=== PATIENT | male | born 1950 | race Caucasian/White ===

== ENCOUNTER 2021-03-24 05:59 | Inpatient (IN) | payer MEDICARE, OTHER ==
[~2021-03-24] VITALS: Ht 177.8 cm; Wt 71.6 kg
[~2021-03-24 05:59] MED LIST: Atenolol-Chlor1 EACH PO; Carbidopa-Levo1 EAC1 PO; GABA400 PO; PANT40 PO; PROM25S; Ranitidine HCl300 MG PO
[2021-03-24] MEDS ORDERED: Prednisone10 MG (06:25)
[2021-03-24] MEDS ORDERED: MONDOXYNE NL100 MG PO (06:25)
[2021-03-24 06:45] LABS: BASOPHILS ABSOLUTE AUTO 0.04 K/mm3 (0.00-0.23); BASOPHILS PERCENT AUTO 0 % (0-2); EOSINOPHILS ABSOLUTE AUTO 0.01 K/mm3 (0.00-0.68); EOSINOPHILS PERCENT AUTO 0 % (0-6); Hematocrit 38.6 % (37.0-53.0); Hemoglobin 14.4 g/dL (13.5-17.5); IMMATURE GRAN ABSOLUTE AUTO 0.13 K/mm3 (0.00-0.10); IMMATURE GRAN PERCENT AUTO 1 % (0-1); LYMPHOCYTES ABSOLUTE AUTO 3.45 K/mm3 (0.84-5.20); LYMPHOCYTES PERCENT AUTO 21 % (21-46); MONOCYTES ABSOLUTE AUTO 1.17 K/mm3 (0.16-1.47); MONOCYTES PERCENT AUTO 7 % (4-13); Mean Corpuscular HGB Conc 37.3 g/dL (31.5-36.5); Mean Corpuscular Volume 102 fL (80-100); Mean Platelet Volume 9.4 fL (9.1-12.4); NEUTROPHILS ABSOLUTE AUTO 11.49 K/mm3 (1.96-9.15); NEUTROPHILS PERCENT AUTO 71 % (41-73); NRBC ABSOLUTE 0.03 K/mm3 (0.00-0.02); NRBC Auto 0.2 /100 WBC (0.0-0.2); Platelet Count 201 K/mm3 (150-400); RDW Coefficient Variation 12.1 % (11.7-14.2); RDW Standard Deviation 45.5 fL (35.1-46.3); Red Blood Cell Count 3.79 M/mm3 (4.30-5.90); White Blood Cell Count 16.29 K/mm3 (4.00-11.30)
[2021-03-24 06:58] LABS: Alanine Aminotransfer (ALT/SGP 47 U/L (12-78); Albumin, Blood 3.4 g/dL (3.4-5.0); Albumin/Globulin Ratio 1.1 (0.8-1.8); Alk Phos 122 U/L (50-136); Anion Gap 8 mmol/L (6-16); Aspartate Aminotrans (AST/SGOT 69 U/L (12-37); Bilirubin, Total 1.4 mg/dL (0.1-1.0); Blood Urea Nitrogen 22 mg/dL (8-24); Bun/Creatinine Ratio 14.6 (12.0-20.0); CO2, Blood 30 mmol/L (21-32); Calcium, Blood 8.9 mg/dL (8.5-10.1); Chloride, Blood 90 mmol/L (98-108); Creatinine, Blood 1.51 mg/dL (0.60-1.20); Globulin, Blood 3.1 g/dL (2.2-4.0); Glomerular Filtration Rate 46 (60-); Glucose, Blood 101 mg/dL (70-99); Potassium, Blood 2.9 mmol/L (3.5-5.5); Sodium, Blood 128 mmol/L (136-145); Total Protein, Blood 6.5 g/dL (6.4-8.2); Troponin I <0.015 ng/mL (0.000-0.040)
[2021-03-24] MEDS ORDERED: POTASSIUM CL ER 10 M (07:03)
[2021-03-24] MEDS ORDERED: HYDHCL25 PO (07:04)
[2021-03-24] MEDS ORDERED: TADA10TA (07:04)
[2021-03-24] MEDS ORDERED: MIRT15ST PO (07:04)
[2021-03-24 09:20] LABS: Triglycerides 84 mg/dL (30-160)
[2021-03-24 10:26] LABS: SARS-Cov-2 (COVID-19) PCR, MMC NEGATIVE (NEGATIVE)
[2021-03-24] MEDS ORDERED: KLOR-CON 1010 ME1 PO (11:36)
[2021-03-24] MEDS ORDERED: Mirtazapine45 M1 PO (11:36)
[2021-03-24] MEDS ORDERED: DOXE25 PO (11:37)
[2021-03-24] MEDS ORDERED: TADALAFIL5 M1 PO (11:37)
[2021-03-24] MEDS ORDERED: TENORETIC 1001 EACH PO (11:38)
[2021-03-24] MEDS ORDERED: PANT40 PO (12:44)
--- NOTE | 2021-03-24 15:25 | NUR ---
RECIEVED REPORT FROM JENNY PAIGE RN, AT 1200. PATIENT ARRIVED TO ROOM 335 @ 1212. PATIENT WAS ABLE TO TRANSFER FROM W/C TO HOSPITAL BED INDEPENDENTLY. VITALS STABLE. ADMISSION H&P AND MED REC COMPLETE WITH THE ASSISTANCE OF THE PATIENT. ALERT AND ORIENTED. PLEASANT AND COOPERATIVE AND NOW RESTING IN BED. CALL LIGHT WITHIN REACH.
--- NOTE | 2021-03-24 15:50 | NUR ---
PATIENT CONTINUES TO REST IN BED. C/O PAIN A COUPLE HOURS AFTER ADMISSION TO MID-EPIGASTRIC AREA; RESPONDED WELL TO PAIN MEDICATION. PATIENT WILL CALL WHEN HE NEEDS STAFF ASSIST.
--- NOTE | 2021-03-25 03:14 | NUR ---
SHIFT SUMMARY PT PRESENTS ON BEDREST. A&O X4. IV ACCESS IN RIGHT AC, IV FLUIDS INFUSING AT 200MLS PER HOUR. RECEIVED SECOND BAG OF POTASSIUM IV. PT C/O MODERATE ABD TENDERNESS AND EPIGASTRIC PAIN. AND REQUESTS PAIN MEDICATION Q 4 HRS, PER ORDERS. DENIES NAUSEA/VOMITING. VOIDS VIA URINAL. NO TELE. ROOM AIR, MAINTAINING SATS OF >90%. VSS. HE IS ABLE TO SLEEP SOME THIS SHIFT. CALL LIGHT IN PLACE, BED IN LOWEST POSITION.
[2021-03-25 05:11] LABS: BASOPHILS ABSOLUTE AUTO 0.02 K/mm3 (0.00-0.23); BASOPHILS PERCENT AUTO 0 % (0-2); EOSINOPHILS ABSOLUTE AUTO 0.01 K/mm3 (0.00-0.68); EOSINOPHILS PERCENT AUTO 0 % (0-6); Hematocrit 39.4 % (37.0-53.0); Hemoglobin 14.4 g/dL (13.5-17.5); IMMATURE GRAN ABSOLUTE AUTO 0.09 K/mm3 (0.00-0.10); IMMATURE GRAN PERCENT AUTO 1 % (0-1); LYMPHOCYTES ABSOLUTE AUTO 1.35 K/mm3 (0.84-5.20); LYMPHOCYTES PERCENT AUTO 10 % (21-46); MONOCYTES ABSOLUTE AUTO 0.89 K/mm3 (0.16-1.47); MONOCYTES PERCENT AUTO 7 % (4-13); Mean Corpuscular HGB 37.5 pg (26.0-34.0); Mean Corpuscular HGB Conc 36.5 g/dL (31.5-36.5); Mean Corpuscular Volume 103 fL (80-100); Mean Platelet Volume 9.7 fL (9.1-12.4); NEUTROPHILS ABSOLUTE AUTO 11.43 K/mm3 (1.96-9.15); NEUTROPHILS PERCENT AUTO 83 % (41-73); Platelet Count 132 K/mm3 (150-400); RDW Coefficient Variation 12.5 % (11.7-14.2); RDW Standard Deviation 46.4 fL (35.1-46.3); Red Blood Cell Count 3.84 M/mm3 (4.30-5.90); White Blood Cell Count 13.79 K/mm3 (4.00-11.30)
[2021-03-25 05:36] LABS: Albumin, Blood 2.8 g/dL (3.4-5.0); Albumin/Globulin Ratio 1.1 (0.8-1.8); Bilirubin, Total 2.4 mg/dL (0.1-1.0); Bun/Creatinine Ratio 16.7 (12.0-20.0); Calcium, Blood 8.3 mg/dL (8.5-10.1); Creatinine, Blood 1.26 mg/dL (0.60-1.20); Globulin, Blood 2.6 g/dL (2.2-4.0); Total Protein, Blood 5.4 g/dL (6.4-8.2)
--- NOTE | 2021-03-25 18:28 | NUR ---
SHIFT SUMMARY THE PATIENT IS ALERT AND ORIENTED. THE PATIENT WAS STARTED ON A CLEAR LIQUID DIET THIS SHIFT. THEY HAVE BEEN TOLERATING IT WELL. THEY HAVE NOT REEIVED PAIN MEDS SINCE BEFORE THE NEW DIET WAS STARTED. THE PATIENT IS PLEASANT AND COOPERATIVE WITH CARE. THEY MAY POSSIBLY DISCHARGE IN THE AM.
--- NOTE | 2021-03-26 05:07 | NUR ---
NO ACUTE CHANGES OVERNIGHT. PAIN WAS MANAGED WITHOUT ANY PAIN MEDICATION. PATIENT DENIES ANY NAUSEA. DENIES PAIN. TOLERATING DIET WELL. NO SIGNIFICANT EVENTS OVERNIGHT.
[2021-03-26 05:09] LABS: BASOPHILS ABSOLUTE AUTO 0.04 K/mm3 (0.00-0.23); BASOPHILS PERCENT AUTO 0 % (0-2); EOSINOPHILS ABSOLUTE AUTO 0.04 K/mm3 (0.00-0.68); EOSINOPHILS PERCENT AUTO 0 % (0-6); Hematocrit 34.9 % (37.0-53.0); Hemoglobin 12.8 g/dL (13.5-17.5); IMMATURE GRAN ABSOLUTE AUTO 0.08 K/mm3 (0.00-0.10); IMMATURE GRAN PERCENT AUTO 1 % (0-1); LYMPHOCYTES ABSOLUTE AUTO 2.16 K/mm3 (0.84-5.20); LYMPHOCYTES PERCENT AUTO 18 % (21-46); MONOCYTES ABSOLUTE AUTO 0.98 K/mm3 (0.16-1.47); MONOCYTES PERCENT AUTO 8 % (4-13); Mean Corpuscular HGB 37.9 pg (26.0-34.0); Mean Corpuscular HGB Conc 36.7 g/dL (31.5-36.5); Mean Corpuscular Volume 103 fL (80-100); Mean Platelet Volume 9.9 fL (9.1-12.4); NEUTROPHILS ABSOLUTE AUTO 8.72 K/mm3 (1.96-9.15); NEUTROPHILS PERCENT AUTO 73 % (41-73); Platelet Count 113 K/mm3 (150-400); RDW Coefficient Variation 12.4 % (11.7-14.2); RDW Standard Deviation 46.6 fL (35.1-46.3); Red Blood Cell Count 3.38 M/mm3 (4.30-5.90); White Blood Cell Count 12.02 K/mm3 (4.00-11.30)
[2021-03-26 06:03] LABS: Alanine Aminotransfer (ALT/SGP 28 U/L (12-78); Albumin, Blood 2.6 g/dL (3.4-5.0); Alk Phos 101 U/L (50-136); Anion Gap 7 mmol/L (6-16); Aspartate Aminotrans (AST/SGOT 41 U/L (12-37); Bilirubin, Total 2.7 mg/dL (0.1-1.0); Blood Urea Nitrogen 18 mg/dL (8-24); Bun/Creatinine Ratio 15.9 (12.0-20.0); CO2, Blood 30 mmol/L (21-32); Calcium, Blood 8.4 mg/dL (8.5-10.1); Chloride, Blood 95 mmol/L (98-108); Creatinine, Blood 1.13 mg/dL (0.60-1.20); Globulin, Blood 2.7 g/dL (2.2-4.0); Glomerular Filtration Rate >60 (60-); Glucose, Blood 42 mg/dL (70-99); Potassium, Blood 3.6 mmol/L (3.5-5.5); Sodium, Blood 132 mmol/L (136-145); Total Protein, Blood 5.3 g/dL (6.4-8.2)
[2021-03-26] MEDS ORDERED: ATEN50 PO (10:52)
== END 2021-03-26 12:00 | disposition home or self-care (01) | DRG 439 ==
LOC: ER 05:59 → MEDS 09:54
PROVIDERS: Emergency Medicine; Family Medicine; Nurse Practitioner Acute Care; ADMIT Internal Medicine
DX: K85.20 Alcohol induced acute pancreatitis without necrosis or infection (principal); E87.1 Hypo-osmolality and hyponatremia; N17.9 Acute kidney failure, unspecified; N28.1 Cyst of kidney, acquired; Z20.822 Contact with and (suspected) exposure to COVID-19; K21.9 Gastro-esophageal reflux disease without esophagitis; I12.9 Hypertensive chronic kidney disease with stage 1 through stage 4 chronic kidney disease, or unspecified chronic kidney disease; N18.30 Chronic kidney disease, stage 3 unspecified; G20 Parkinson's disease; K76.0 Fatty (change of) liver, not elsewhere classified; D72.829 Elevated white blood cell count, unspecified; E87.6 Hypokalemia; D69.59 Other secondary thrombocytopenia; Z88.8 Allergy status to other drugs, medicaments and biological substances; Z88.1 Allergy status to other antibiotic agents; Z86.010 Personal history of colon polyps; Z79.899 Other long term (current) drug therapy; Z79.52 Long term (current) use of systemic steroids
CPT/HCPCS: 36415; 74177; 80053; 82947; 83690; 83735; 84478; 84484; 85025; 93005; 93010; 96365; 96366; 96375; 99285-25; A9270; J1644; J2270; J2765; J3010; J3475; J3480; J7030; J7050; Q9967; U0004

== ENCOUNTER → 2021-10-06 | Outpatient (CLI) | payer MEDICARE, OTHER ==
[~2021-10-06] MED LIST changes: +ATEN50 PO; +DOXE25 PO; +HYDHCL25 PO; +KLOR-CON 1010 ME1 PO; +MIRT15ST PO; +MONDOXYNE NL100 MG PO; +Mirtazapine45 M1 PO; +POTASSIUM CL ER 10 M; +Prednisone10 MG; +TADA10TA; +TADALAFIL5 M1 PO; +TENORETIC 1001 EACH PO
== END ==
LOC: PLD 11:33 → LAB SHORT 11:33
DX: L30.8 Other specified dermatitis (principal)
CPT/HCPCS: 88305; 88312

== ENCOUNTER → 2021-11-24 | Outpatient (CLI) | payer MEDICARE, OTHER | LOC: PLD 08:26 → LAB SHORT 08:26 | DX: R21 Rash and other nonspecific skin eruption (principal) | CPT/HCPCS: 88312 ==

== ENCOUNTER 2022-09-13 08:13 | Day surgery (SDC) | payer MEDICARE, OTHER ==
[~2022-09-13] VITALS: Ht 177.8 cm; Wt 68.0 kg
[2022-09-13] MEDS ORDERED: TADA10TA (08:47)
== END 2022-09-13 11:09 | disposition home or self-care (01) ==
LOC: ORSCSDS 08:13
PROVIDERS: Internal Medicine Gastroenterology
PROC: 0DBE8ZX Excision of Large Intestine, Via Natural or Artificial Opening Endoscopic, Diagnostic (ICD-10-PCS; principal; 2022-09-13 09:45)
DX: R19.4 Change in bowel habit (principal); Z86.010 Personal history of colon polyps; K52.831 Collagenous colitis; K57.30 Diverticulosis of large intestine without perforation or abscess without bleeding; K55.20 Angiodysplasia of colon without hemorrhage; K64.8 Other hemorrhoids; Z87.891 Personal history of nicotine dependence; Z79.899 Other long term (current) drug therapy
CPT/HCPCS: 88305; 88313; J2704; J7120